=== PATIENT | female | born 1985 | race Caucasian/White ===

== ENCOUNTER 2016-08-31 20:57 | Emergency (ER) | payer SELFPAY ==
[2016-08-31 21:07] VITALS: BP 117/76
[2016-08-31] MEDS ORDERED: Take Home: Acetaminophen/Codeine 300 MG/30 MG, 5 Tab Pack PO ONE (22:07)
[2016-08-31] MEDS ORDERED: Take Home: Clindamycin HCl 150 MG Cap, 6 Cap Pack PO ONE (22:07)
--- NOTE | 2016-09-09 10:55 | ER ---
Date of Service: 08/31/2016 SUBJECTIVE: Dianne presents to the emergency room with complaints of right lower dental pain. The patient states that she is unable to get into a dentist until . She noticed that the right side of her face is edematous. She states that she has not been experiencing any significant fever or chills. PAST MEDICAL HISTORY: None. MEDICATIONS: None. ALLERGIES: To metronidazole. REVIEW OF SYSTEMS: Denies any difficulties with swallowing or managing her secretions. Denies any chest pain or shortness of breath. PHYSICAL EXAMINATION: General: This is a 31-year-old female patient, in no acute distress. Vital Signs: Blood pressure is 117/76, pulse rate is 84, temperature is 36.8, respiratory rate 16, O2 saturations 97%. Skin: Warm, pink, and dry. HEENT: Head is normocephalic, atraumatic. Mouth, oral mucosa is moist. She does have evidence of a cracked right lower premolar. There is mild edema noted to the surrounding tissues. It is mildly erythematous in the area. No obvious large abscess noted. No swelling to the hypopharynx. Remainder of her physical examination is within normal limits. ASSESSMENT: Dental pain. PLAN: The patient was started on clindamycin 300 mg 3 times a day. Also, did start her on a short course of Tylenol with codeine to help with discomfort. In addition, she should take ibuprofen 600 mg every 6 hours. I would like her to again follow up with a dentist as soon as possible. All questions were answered. MWK: 09/09/2016 08:06:35 MODL: 09/09/2016 10:48:59 /[id number]
== END 2016-08-31 22:23 | disposition home or self-care (01) ==
LOC: VM.ED 20:57
DX: K03.81 Cracked tooth (principal)
CPT/HCPCS: 99282; A9270; 99283-GF